=== PATIENT | male | born 1945 | race Caucasian/White ===

== ENCOUNTER 2018-11-15 18:20 | Emergency (ER) | payer OTHER ==
--- NOTE | 2018-11-15 18:32 | EDPHY ---
H & P Time Seen by Provider: 11/15/18 18:31 Allergies/Adverse Reactions: No Known Allergies Allergy (Unverified 11/15/18 18:31) Medical Decision Making ED Course/Re-evaluation: CHIEF COMPLAINT: HISTORY OF PRESENT ILLNESS: must have 4 elements: Location, Quality, Severity , Duration, Timing, Context, Modifying Factors, Associated Signs and Symptoms REVIEW OF SYSTEMS: A comprehensive 10 system review of systems is otherwise negative aside from elements mentioned in the history of present illness and medical decision making. PHYSICAL EXAM: HR, BP, O2 Sat, RR. Temp noted General Appearance: Alert, well hydrated, appropriate, and non-toxic appearing. Head: Atraumatic without scalp tenderness or obvious injury Eyes: Pupils equal, round, reactive to light and accommodation, EOMI, no trauma , no injection. Ears: Clear bilaterally, no perforation, normal landmarks Nose: Atraumatic, no rhinorrhea, clear. Throat: There is no erythema or exudates, no lesions, normal tonsils, mucus membranes moist. Neck: Supple, 2+ carotid upstroke, nontender, no lymphadenopathy. Respiratory: No retractions, no distress, no wheezes, and no accessory muscle use. Lungs are clear to auscultation bilaterally. Cardiovascular: Regular rate and rhythm, no murmurs, rubs, or gallops. Bilateral carotid, radial, dorsalis pedis, and posterior tibial pulses intact. Good capillary refill all extremities. Gastrointestinal: Abdomen is soft, nontender, non-distended, no masses, no rebound, no guarding, no peritoneal signs. Musculoskeletal: Normal active ROM of all extremities, atraumatic. Neurological: Alert, appropriate, and interactive. The patient has normal DTRs and non-focal cranial nerves, motor, sensory, and cerebellar exam. Skin: No rashes, good turgor, no nodules on palpation. Past medical history: Past surgical history: Family history: Social history: DIAGNOSTICS/PROCEDURES/CRITICAL CARE TIME: DIFFERENTIAL DIAGNOSIS: MEDICAL DECISION MAKING:
[2018-11-15 18:36] VITALS: BP 173/112
--- NOTE | 2018-11-15 18:37 | EDPHY ---
H & P Time Seen by Provider: 11/15/18 18:31 HPI/ROS: CHIEF COMPLAINT: Frostbite, chronic hip pain HISTORY OF PRESENT ILLNESS: Patient is a 73-year-old homeless man who comes to the emergency department complaining of frostbite on his right great toe. He states that he has been dealing with for several months. He also complains of chronic bilateral hip pain. He reports that he fell and broke his hip few months ago. He had a CT scan that revealed a chip fracture. It was treated non operatively. He states that it is giving him chronic pain. He is here requesting narcotic pain medication. No recent fevers. No recent injuries. Severity: Moderate Modifying factors: No improvement with Tylenol and ibuprofen REVIEW OF SYSTEMS: Constitutional: denies: chills, fever, recent illness, recent injury EENTM: denies: blurred vision, double vision, nose congestion Respiratory: denies: cough, shortness of breath Cardiac: denies: chest pain, irregular heart rate, lightheadedness, palpitations Gastrointestinal/Abdominal: denies: abdominal pain, diarrhea, nausea, vomiting, blood streaked stools Genitourinary: denies: dysuria, frequency, hematuria, pain Musculoskeletal: See HPI Skin: See HPI Neurological: denies: headache, numbness, paresthesia, tingling, dizziness, weakness Hematologic/Lymphatic: denies: blood clots, easy bleeding, easy bruising Immunologic/allergic: denies: HIV/AIDS, transplant 10 systems reviewed and negative except as noted EXAM: GENERAL: Disheveled, in no acute distress. HEAD: Atraumatic, normocephalic. EYES: Pupils equal round and reactive to light, extraocular movements intact, sclera anicteric, conjunctiva are normal. ENT: TMs normal, nares patent, oropharynx clear without exudates. Moist mucous membranes. NECK: Normal range of motion, supple without lymphadenopathy or JVD. LUNGS: Breath sounds clear to auscultation bilaterally and equal. No wheezes rales or rhonchi. HEART: Regular rate and rhythm without murmurs, rubs or gallops. ABDOMEN: Soft, nontender, normoactive bowel sounds. No guarding, no rebound. No masses appreciated. BACK: No CVA tenderness, no spinal tenderness, step-offs or deformities EXTREMITIES: Normal range of motion, no pitting or edema. No clubbing or cyanosis. No hip tenderness to palpation. Normal range of motion. NEUROLOGICAL: Cranial nerves II through XII grossly intact. Normal speech, normal gait. 5/5 strength, normal movement in all extremities, normal sensation , normal reflexes PSYCH: Normal mood, normal affect. SKIN: Small whitish frostbite type lesion to tip of right great toe. No other toes visibly affected. Source: Patient Exam Limitations: No limitations - Medical/Surgical History Hx Asthma: No Hx Chronic Respiratory Disease: No Hx Diabetes: No Hx Cardiac Disease: No Hx Cirrhosis: No Hx Alcoholism: Yes Hx HIV/AIDS: No - Family History Significant Family History: No pertinent family hx - Social History Smoking Status: Former smoker Alcohol Use: Sober Constitutional: Initial Vital Signs Temperature (C) 36.8 C 11/15/18 18:31 Heart Rate 90 11/15/18 18:31 Respiratory Rate 18 11/15/18 18:31 Blood Pressure 173/112 H 11/15/18 18:31 O2 Sat (%) 96 11/15/18 18:31 O2 Delivery Mode Room Air Allergies/Adverse Reactions: No Known Allergies Allergy (Unverified 11/15/18 18:31) Medical Decision Making ED Course/Re-evaluation: Patient is a homeless man here requesting narcotic medications. I offered him ibuprofen and Tylenol knee declines. We discussed the fact we do not give opiate prescriptions for chronic pained. We discussed the process of auto amputation for his frostbite injury that was several months ago. Patient understands this reasoning. He declines medication or treatment this time. Discussed indications for returning. Differential Diagnosis: Partial list of the Differential diagnosis considered include but were not limited to; opiate abuse, frostbite, chronic pain, fracture and although unlikely based on the history and physical exam, I also considered head injury, infection. Departure - Departure Disposition: Home, Routine, Self-Care Clinical Impression: Drug-seeking behavior Frostbite Qualifiers: Encounter type: subsequent encounter Qualified Code(s): T33.90XD - Superficial frostbite of unspecified sites, subsequent encounter Condition: Fair Instructions: Frostbite (ED) Referrals: [facility],. [Clinic] - As per Instructions
== END 2018-11-15 18:45 | disposition home or self-care (01) ==
DX: M25.551 Pain in right hip (principal); M25.552 Pain in left hip; T33.831D Superficial frostbite of right toe(s), subsequent encounter; Z76.5 Malingerer [conscious simulation]

== ENCOUNTER 2018-12-25 17:35 | Emergency (ER) | payer SELFPAY ==
[2018-12-25] MEDS ORDERED: CHLORDIAZEPOXIDE 25MG PREPK#6 BTL TAKEHOME ONE (17:48)
== END 2018-12-25 18:14 | disposition home or self-care (01) ==
DX: F10.920 Alcohol use, unspecified with intoxication, uncomplicated (principal); F17.200 Nicotine dependence, unspecified, uncomplicated; G89.29 Other chronic pain; Z59.0 Homelessness